=== PATIENT | female | born 1980 | race Asian ===

== ENCOUNTER 2017-12-10 00:07 | Inpatient (IN) | payer SELFPAY ==
[~2017-12-10] VITALS: Ht 167.6 cm; Wt 73.9 kg
[2017-12-10] MEDS ORDERED: OXYTOCIN/NORMAL SALINE 1,000 ML IV SCH (00:39)
[2017-12-10] MEDS ORDERED: TERBUTALINE SULFATE 1 MG/ML VIAL SUBCUT ONE (00:45)
[2017-12-10] MEDS ORDERED: NALBUPHINE HCL 10 MG/ML AMP IVP PRN ×3 (00:45→10:15)
[2017-12-10 00:59] VITALS: BP_SYST 112
[2017-12-10 01:24] LABS: BASOPHILS % (AUTO) 0.3 % (0.0-2.0); EOSINOPHILS % (AUTO) 0.4 % (0.0-4.0); HEMATOCRIT 32.1 % (36-48); HEMOGLOBIN 10.4 g/dL (12.0-16.0); LYMPHOCYTES # (AUTO) 1.6 K/uL (1.0-5.5); LYMPHOCYTES % (AUTO) 30.7 % (20.5-51.5); MEAN CORPUSCULAR HEMOGLOBIN 29 pg (27-31); MEAN CORPUSCULAR HGB CONC 32 % (32-36); MEAN CORPUSCULAR VOLUME 89 fL (79.0-98.0); MONOCYTES # (AUTO) 0.4 K/uL (0.0-1.0); MONOCYTES % (AUTO) 8.3 % (1.7-9.3); NEUTROPHILS # (AUTO) 3.1 K/uL (1.8-7.7); NEUTROPHILS % (AUTO) 60.3 % (40.0-70.0); PLATELET COUNT (AUTO) 146 K/uL (130-430); RED BLOOD CELL COUNT(AUTO) 3.59 MIL/uL (4.2-6.2); RED CELL DISTRIBUTION WIDTH 15.1 % (9.0-15.0); WHITE BLOOD COUNT (AUTO) 5.1 K/uL (4.8-10.8)
[2017-12-10] MEDS: LR 1,000 ML IV SCH ×3 (01:32→08:12)
[2017-12-10] MEDS ORDERED: fentaNYL CITRATE/PF 100 MCG/2 ML AMP ONE ×2 (07:23→11:19)
[2017-12-10] MEDS ORDERED: ROPIVACAINE 0.2% 100 ML ONE (07:26)
[2017-12-10] MEDS ORDERED: BUPIVACAINE /DEX PF 0.75% SPINAL 2 ML AMP INJ ONE (09:22)
[2017-12-10] MEDS ORDERED: MORPHINE SULFATE 10MG/10ML PF AMP EP ONE (09:22)
[2017-12-10] MEDS ORDERED: NS IRRIG SOLN 1000 ML IR ONE (09:22)
[2017-12-10] MEDS ORDERED: LR 1,000 ML IV.SOLN IV ONE (09:22)
[2017-12-10] MEDS ORDERED: LR 1,000 ML IV SCH (09:30)
[2017-12-10] MEDS ORDERED: CEFAZOLIN 2 GM IVPB PREMIX 50 ML IV ONE (09:30)
[2017-12-10] MEDS ORDERED: FENT2mCg/mL-ROPIVA0.2%/NS EPID 150 ML EP SCH (10:15)
[2017-12-10] MEDS ORDERED: KETOROLAC TROMETHAMINE 60 MG/2 ML VIAL IM PRN (10:15)
[2017-12-10] MEDS ORDERED: MORPHINE SULFATE 10MG/10ML PF AMP EP SCH (10:15)
[2017-12-10] MEDS ORDERED: NALOXONE HCL 0.4 MG/ML AMP (NARCAN) IVP PRN ×3 (10:15)
[2017-12-10] MEDS ORDERED: fentaNYL CITRATE/PF 100 MCG/2 ML AMP IVP PRN ×2 (10:15)
[2017-12-10] MEDS ORDERED: ONDANSETRON HCL 4 MG/2 ML VIAL IVP PRN ×3 (10:15)
[2017-12-10] MEDS ORDERED: DIPHENHYDRAMINE INJ 50 MG/ML VIAL IVP PRN ×2 (10:15)
[2017-12-10 10:29] VITALS: BP_SYST 133
[2017-12-10] MEDS ORDERED: HYDROcodone/ACETAMIN 5-325 MG TAB (NORCO/ VICODIN) PO PRN (11:15)
[2017-12-10] MEDS ORDERED: SIMETHICONE 80 MG TAB.CHEW PO PRN (11:15)
[2017-12-10] MEDS ORDERED: LANOLIN 7 GM OINT. TP PRN (11:15)
[2017-12-10] MEDS ORDERED: OXYCODONE/ACETAMINOPHEN 5-325 TABLET PO PRN (11:15)
[2017-12-10] MEDS ORDERED: MEASLES,MUMPS&RUBELLA VACC/PF 12500 UNIT/0.5 ML VIAL SUBQ PRN (11:15)
[2017-12-10] MEDS ORDERED: OXYTOCIN/NORMAL SALINE 1,000 ML IV ONE (11:15)
[2017-12-10] MEDS ORDERED: ANUSOL 1 EA SUPP.RECT (PREPARATION H) RC PRN (11:15)
[2017-12-10 12:18] LABS: BASOPHILS # (AUTO) 0.1 K/uL (0.0-0.2); BASOPHILS % (AUTO) 0.9 % (0.0-2.0); EOSINOPHILS % (AUTO) 0.1 % (0.0-4.0); HEMATOCRIT 28.7 % (36-48); HEMOGLOBIN 9.6 g/dL (12.0-16.0); LYMPHOCYTES # (AUTO) 0.9 K/uL (1.0-5.5); LYMPHOCYTES % (AUTO) 15.6 % (20.5-51.5); MEAN CORPUSCULAR HEMOGLOBIN 30 pg (27-31); MEAN CORPUSCULAR HGB CONC 34 % (32-36); MEAN CORPUSCULAR VOLUME 88 fL (79.0-98.0); MONOCYTES # (AUTO) 0.3 K/uL (0.0-1.0); MONOCYTES % (AUTO) 5.3 % (1.7-9.3); NEUTROPHILS # (AUTO) 4.5 K/uL (1.8-7.7); NEUTROPHILS % (AUTO) 78.1 % (40.0-70.0); PLATELET COUNT (AUTO) 134 K/uL (130-430); RED BLOOD CELL COUNT(AUTO) 3.25 MIL/uL (4.2-6.2); RED CELL DISTRIBUTION WIDTH 15.5 % (9.0-15.0); WHITE BLOOD COUNT (AUTO) 5.8 K/uL (4.8-10.8)
[2017-12-10 12:31] LABS: INR 0.9 (0.8-1.2); PROTHROMBIN TIME 9.6 SECS (9.5-12.5)
[2017-12-10 13:05] LABS: FIBRINOGEN 226 mg/dL (200-400)
[2017-12-10] MEDS: CEFAZOLIN 1 GM IVPB PREMIX 50 ML IV SCH (14:38)
[2017-12-10] MEDS ORDERED: TEMAZEPAM 15 MG CAPSULE PO PRN (21:00)
[2017-12-11] MEDS: CEFAZOLIN 1 GM IVPB PREMIX 50 ML IV SCH (03:22)
[2017-12-11] MEDS: IBUPROFEN 600 MG TABLET PO SCH ×3 (05:26→18:12)
[2017-12-11 07:48] LABS: BASOPHILS % (AUTO) 0.3 % (0.0-2.0); EOSINOPHILS % (AUTO) 0.3 % (0.0-4.0); LYMPHOCYTES # (AUTO) 0.9 K/uL (1.0-5.5); LYMPHOCYTES % (AUTO) 18.1 % (20.5-51.5); MEAN CORPUSCULAR HEMOGLOBIN 29 pg (27-31); MEAN CORPUSCULAR HGB CONC 33 % (32-36); MEAN CORPUSCULAR VOLUME 89 fL (79.0-98.0); MONOCYTES # (AUTO) 0.3 K/uL (0.0-1.0); MONOCYTES % (AUTO) 6.6 % (1.7-9.3); NEUTROPHILS # (AUTO) 3.8 K/uL (1.8-7.7); NEUTROPHILS % (AUTO) 74.7 % (40.0-70.0); RED BLOOD CELL COUNT(AUTO) 2.08 MIL/uL (4.2-6.2); RED CELL DISTRIBUTION WIDTH 15.6 % (9.0-15.0)
[2017-12-11 07:59] LABS: HEMOGLOBIN 6.1 g/dL (12.0-16.0)
[2017-12-11 08:00] LABS: HEMATOCRIT 18.4 % (36-48)
[2017-12-11] MEDS ORDERED: ACETAMINOPHEN 325 MG TABLET PO ONE (08:30)
[2017-12-11] MEDS ORDERED: DIPHENHYDRAMINE HCL 12.5 MG/5 ML UDC PO ONE (08:30)
[2017-12-11 11:12] LABS: PLATELET COUNT (AUTO) 112 K/uL (130-430)
[2017-12-11 13:56] LABS: BASOPHILS % (AUTO) 0.3 % (0.0-2.0); EOSINOPHILS % (AUTO) 0.3 % (0.0-4.0); HEMATOCRIT 22.5 % (36-48); HEMOGLOBIN 7.4 g/dL (12.0-16.0); LYMPHOCYTES # (AUTO) 1.1 K/uL (1.0-5.5); MEAN CORPUSCULAR HEMOGLOBIN 30 pg (27-31); MEAN CORPUSCULAR HGB CONC 33 % (32-36); MEAN CORPUSCULAR VOLUME 90 fL (79.0-98.0); MONOCYTES # (AUTO) 0.4 K/uL (0.0-1.0); MONOCYTES % (AUTO) 5.6 % (1.7-9.3); NEUTROPHILS # (AUTO) 5.6 K/uL (1.8-7.7); NEUTROPHILS % (AUTO) 77.8 % (40.0-70.0); PLATELET COUNT (AUTO) 142 K/uL (130-430); RED BLOOD CELL COUNT(AUTO) 2.52 MIL/uL (4.2-6.2); RED CELL DISTRIBUTION WIDTH 16.7 % (9.0-15.0); WHITE BLOOD COUNT (AUTO) 7.1 K/uL (4.8-10.8)
[2017-12-11] MEDS: FERROUS SULFATE 325 MG TABLET.DR PO SCH (22:12)
[2017-12-12] MEDS: IBUPROFEN 600 MG TABLET PO SCH ×4 (00:37→18:26)
[2017-12-12] MEDS: FERROUS SULFATE 325 MG TABLET.DR PO SCH ×3 (09:00→20:50)
[2017-12-12] MEDS: DOCUSATE SODIUM 100 MG CAPSULE PO PRN (12:17)
[2017-12-12] MEDS: OXYCODONE/ACETAMINOPHEN 5-325 TABLET PO PRN (20:46)
[2017-12-13] MEDS: IBUPROFEN 600 MG TABLET PO SCH ×2 (00:46→06:22)
[2017-12-13] MEDS: OXYCODONE/ACETAMINOPHEN 5-325 TABLET PO PRN (12:02)
[2017-12-13] MEDS: DOCUSATE SODIUM 100 MG CAPSULE PO PRN (12:03)
== END 2017-12-13 15:50 | disposition home or self-care (01) | DRG 765 ==
LOC: SPU 00:07
PROVIDERS: ADMIT Obstetrics & Gynecology; ATTEND Obstetrics & Gynecology
PROC: 10D00Z1 Extraction of Products of Conception, Low, Open Approach (ICD-10-PCS; principal; 2017-12-10 09:30)
DX: O77.9 Labor and delivery complicated by fetal stress, unspecified (principal); O45.93 Premature separation of placenta, unspecified, third trimester; Z37.0 Single live birth; Z3A.39 39 weeks gestation of pregnancy
CPT/HCPCS: 36415; 85025; 85379; 85384-TC; 85610-TC; 85730-TC; 86592; 86886; 86900; 86901; 94760; A4618; J0690; J1885; J2274; J2590; J2795; J3010; J3490; J7120